=== PATIENT | male | born 1950 | race Caucasian/White ===

== ENCOUNTER 2016-06-09 08:20 | Day surgery (SDC) | payer OTHER ==
[2016-06-09] MEDS ORDERED: IV START KIT ONE (08:48)
[2016-06-09] MEDS ORDERED: LACTATED RINGERS 1,000 ML ONE (08:48)
[2016-06-09] MEDS ORDERED: PROPOFOL 40 ML IV ONE (10:51)
== END 2016-06-09 16:31 | disposition home or self-care (01) ==
LOC: SDC 08:20
PROVIDERS: ATTEND Family Medicine
PROC: 0DJD8ZZ Inspection of Lower Intestinal Tract, Via Natural or Artificial Opening Endoscopic (ICD-10-PCS; principal; 2016-06-09)
DX: Z12.11 Encounter for screening for malignant neoplasm of colon (principal); Q43.8 Other specified congenital malformations of intestine; Z72.0 Tobacco use; Z80.8 Family history of malignant neoplasm of other organs or systems
CPT/HCPCS: 45378; J7120